=== PATIENT | female | born 2000 | race African-American/Black ===

== ENCOUNTER 2024-11-13 14:18 | Emergency (ER) | payer OTHER ==
[~2024-11-13] VITALS: Ht 167.6 cm; Wt 112.0 kg
[2024-11-13 14:28] VITALS: O2SAT 99
[2024-11-13 15:06] LABS: CREATININE 0.9 mg/dL (0.6-1.0)
[2024-11-13 15:07] LABS: UREA NITROGEN BLOOD 7 mg/dL (9-23)
[2024-11-13 15:08] LABS: ASPARTATE AMINOTRANSFERASE 40 IU/L (<34)
[2024-11-13 15:09] LABS: BILIRUBIN DIRECT < 0.1 mg/dL (<=3.0); BILIRUBIN TOTAL 0.4 mg/dL (0.1-1.0); PROTEIN TOTAL 7.4 g/dL (6.0-8.3)
[2024-11-13 15:28] LABS: HCG SCREEN NEGATIVE
[2024-11-13 15:39] LABS: BASOPHILS % 0.5 % (0.0-2.0); EOSINOPHILS % 2.7 % (0.0-5.0); HEMATOCRIT. 38.4 % (36.0-48.0); HEMOGLOBIN. 12.7 g/dL (12.0-16.0); LYMPHOCYTES % 29.2 % (20.0-50.0); MEAN PLATELET VOLUME 9.1 fl (7.4-10.4); MONOCYTES % 8.1 % (2.0-8.0); NEUTROPHILS % 59.5 % (40.0-76.0); PLATELET 257 x1000/uL (130-400); RED BLOOD CELL COUNT 4.56 mill/uL (4.2-5.4); RED CELL DISTRIBUTION WIDTH 14.0 % (11.6-14.6)
[2024-11-13] MEDS: FAMOTIDINE 20MG TABLET PO SCH (15:44)
[2024-11-13] MEDS ORDERED: ONDA4TAB50 MT (15:54)
[2024-11-13 16:05] VITALS: BP 134/87; PULSE 78; RESP 16; TEMP 36.9; O2SAT 100
== END 2024-11-13 16:09 | disposition home or self-care (01) ==
LOC: ER 14:18
DX: K92.0 Hematemesis (principal); F12.90 Cannabis use, unspecified, uncomplicated; I10 Essential (primary) hypertension; Z79.899 Other long term (current) drug therapy
CPT/HCPCS: 36415; 71045; 80048; 80076; 84703; 85025; 93005; 99285